=== PATIENT | female | born 1970 | race Caucasian/White ===

== ENCOUNTER 2017-03-15 14:42 | Emergency (ER) | payer OTHER ==
[~2017-03-15] VITALS: Ht 154.9 cm; Wt 79.2 kg
[2017-03-15 14:46] VITALS: TEMP 36.9; Ht 154.9 cm; Wt 79.2 kg
[2017-03-15] MEDS ORDERED: [UNRECOGNIZED DRUG - OTHER] PO (14:56)
--- NOTE | 2017-03-15 15:47 | EMERGENCY ROOM VISIT NOTE ---
History First contact with patient: 14:51 Chief Complaint: OTHER COMPLAINT Stated Complaint: SCISSOR CUT- WORK RELATED History of Present Illness The patient is a 46 year old female who presents to the Emergency Room for another location of the hospital with complaints of "scissors cut, work related ". The patient states that earlier today around 2:30 PM, she was working in the decontamination sterile processing room, when she accidentally cut her left thumb on a pair of scissors. She states that this was from case #4, and the attending on the source patient was Dr. Terry. She states that in her hand she also had bloody hemostats, and was wearing two pairs of gloves. She states that it struck her right distal thumb. She notes that her tetanus is up-to- date. At this time there is no pain. She notes that she did rinse the region out twice. Review of Systems A complete 10-point Review of Systems was discussed with the patient, with pertinent positives and negatives listed in the History of Present Illness. All remaining Review of Systems questions can be considered negative unless otherwise specified. Past Medical/Surgical History No pertinent past medical history. Family History No pertinent family history. Social History Smoking Status: Former Smoker Social History: Patient is currently employed. Current/Historical Medications Scheduled Emtricitabine/Temofovir (Truvada 200/300MG), 1 TAB PO DAILY Raltegravir Potassium (Isentress), 1 TAB PO Q12 [Activit], 1 TAB PO DAILY Allergies Coded Allergies: No Known Allergies (Unverified , 03/15/17) Physical Exam Vital Signs Date Time Temp Pulse Resp B/P Pulse Ox O2 Delivery O2 Flow Rate FiO2 03/15/17 17:38 95 18 123/80 99 03/15/17 14:46 36.9 100 20 113/79 96 Room Air Physical Exam VITAL SIGNS - Vital signs and nursing notes were reviewed. Patient is afebrile , normotensive, tachycardic rate of 100 bpm, and is saturating well on room air 96%. GENERAL -46-year-old female appearing her stated age who is in no acute distress. Communicates well with provider and answers questions appropriately. SKIN - Without rashes. There is a small, 0.5 cm superficial laceration noted at the distal most tip of the right first digit. No bleeding currently. There is full range of motion of this region. Medical Decision & Procedures Laboratory Results 03/15/17 16:20 Red Blood Count 4.58, Mean Corpuscular Volume 86.7, Mean Corpuscular Hemoglobin 28.8, Mean Corpuscular Hemoglobin Concent 33.2, Mean Platelet Volume 10.8, Neutrophils (%) (Auto) 66.5, Lymphocytes (%) (Auto) 24.6, Monocytes (%) (Auto) 7.4, Eosinophils (%) (Auto) 0.8, Basophils (%) (Auto) 0.4, Neutrophils # (Auto) 6.39, Lymphocytes # (Auto) 2.37, Monocytes # (Auto) 0.71, Eosinophils # (Auto) 0.08, Basophils # (Auto) 0.04 03/15/17 16:20 Test 03/15/17 15:20 03/15/17 16:20 Human Chorionic Gonadotropin, Qual NEG (NEG) White Blood Count 9.62 K/uL (4.8-10.8) Red Blood Count 4.58 M/uL (4.2-5.4) Hemoglobin 13.2 g/dL (12.0-16.0) Hematocrit 39.7 % (37-47) Mean Corpuscular Volume 86.7 fL (80-100) Mean Corpuscular Hemoglobin 28.8 pg (25-34) Mean Corpuscular Hemoglobin Concent 33.2 g/dl (32-36) Platelet Count 305 K/uL (130-400) Mean Platelet Volume 10.8 fL (7.4-10.4) Neutrophils (%) (Auto) 66.5 % Lymphocytes (%) (Auto) 24.6 % Monocytes (%) (Auto) 7.4 % Eosinophils (%) (Auto) 0.8 % Basophils (%) (Auto) 0.4 % Neutrophils # (Auto) 6.39 K/uL (1.4-6.5) Lymphocytes # (Auto) 2.37 K/uL (1.2-3.4) Monocytes # (Auto) 0.71 K/uL (0.11-0.59) Eosinophils # (Auto) 0.08 K/uL (0-0.5) Basophils # (Auto) 0.04 K/uL (0-0.2) RDW Standard Deviation 43.9 fL (36.4-46.3) RDW Coefficient of Variation 13.9 % (11.5-14.5) Immature Granulocyte % (Auto) 0.3 % Immature Granulocyte # (Auto) 0.03 K/uL (0.00-0.02) Anion Gap 5.0 mmol/L (3-11) Est Creatinine Clear Calc Drug Dose 80.6 ml/min Estimated GFR () 97.3 Estimated GFR (Non- 83.9 BUN/Creatinine Ratio 24.9 (10-20) Calcium Level 9.8 mg/dl (8.5-10.1) Total Bilirubin < 0.1 mg/dl (0.2-1) Aspartate Amino Transf (AST/SGOT) 12 U/L (15-37) Alanine Aminotransferase (ALT/SGPT) 24 U/L (12-78) Alkaline Phosphatase 82 U/L (45-117) Total Protein 7.3 gm/dl (6.4-8.2) Albumin 3.7 gm/dl (3.4-5.0) Globulin 3.6 gm/dl (2.5-4.0) Albumin/Globulin Ratio 1.0 (0.9-2) Medical Decision Patient was seen and evaluated as above. After obtaining a thorough history and physical examination lab collection was initiated and the employee consented to baseline testing. This was after the appropriate further work had been filled out with the patient, to include consent for HIV testing. Patient' s tetanus was up-to-date. She notes that her hepatitis B titers are also appropriate. In a decision whether or not to initiate HIV prophylaxis, the patient stated that she would choose whatever option was recommended to her. I did elect to call La Jackson, the employee health coordinator to inform her of today's findings. I then also called the postexposure prophylaxis hotline who informed me that they were on the fence whether or not to recommend HIV prophylaxis. It appears that at this time it is a very low risk of HIV transmission, however the status of the source patient is unknown. I was also informed that the source patient would not be able to consent to testing for approximately 2 weeks. I informed the patient upon this, and also about the very low risk of HIV transmission. She informed me that if we were able to test the source patient within the amount of window that was needed to start the testing, she states that she would go home and wait to be notified if the patient was HIV positive should begin prophylaxis. She indicated that because we will not know the patient's status for roughly 2 weeks, she would like to initiate HIV prophylaxis at this time. I do believe that this is reasonable. I did initiate contact with our in-house pharmacist, who also helped educate the patient upon the medications. A thorough discussion versus benefits versus risks to include potential harm and side effects was discussed with the patient. She wanted to pursue the medications. She was given the first 3 days supply here, with the remainder sent to her pharmacy. Her pharmacy was called by our pharmacy staff and it was found that her pharmacy would be able to obtain a medication within the amount of time needed. The patient had the wound cleansed after consent, and was dressed with a bacitracin dressing and bandage. She was educated to stop her vitamins during the time that she was taking medications. She takes no other medications. I was also called by the health office here, who indicated that not enough blood was drawn to be able to run baseline labs to initiate postexposure prophylaxis. I was informed only yellow top tubes have been drawn. I then decided to initiate another lab draw for CBC and CMP. These labs do not indicate any specific or emergent anemia, and at baseline her liver function and kidneys appear to be okay and there is no need to dose adjust the medication. She had all of her questions answered prior to discharge, was educated upon worrisome symptoms which to return, and was discharged home in good condition. Impression Primary Impression: Employee exposure to body fluids Departure Information Dispostion Home / Self-Care Condition GOOD Prescriptions Emtricitabine/Temofovir (Truvada 200/300MG) Tab 1 TAB PO DAILY for 25 Days, #25 TAB 0 Refills Prov: Kevin Rojas PA-C 03/15/17 Raltegravir Potassium (ISENTRESS) 400 Mg Tab 1 TAB PO Q12 for 25 Days, #50 TAB Prov: Kevin Rojas PA-C 03/15/17 Referrals Danilo Luna M.D. (PCP) Patient Instructions My [facility] Additional Instructions You were seen in the emergency Department for a body fluid exposure. You have been notified by our health department team regarding the status of your testing. After thorough discussion, you have elected to begin the HIV prophylactic exposure medication regimen. As we discussed this medication must be taken exactly as it is prescribed. The first medication, is Raltegravir (ISENTRESS), this is one tablet every 12 hours for 28 days. You have been sent home with the first 3 day supply with the remainder at her pharmacy. The second medication is Emtricitabine/Temofovir (TRUVADA) this is one tablet daily for 28 days. You've been sent home with the first 3 days supply with the remainder at your pharmacy.) Please take these medications as prescribed. You have been notified on the status of the source patient. If you have any questions please return here. Please watch for signs of infection on your finger. This includes redness, swelling, drainage. If these would develop please return here immediately. Thank you for your time.
[2017-03-15] MEDS ORDERED: HIV POST EXPOSURE PROPHYLAXIS KIT ONE (15:57)
[2017-03-15 16:35] LABS: BASO % 0.4 %; BASO ABS # 0.04 K/uL (0-0.2); COMPLETE YES; EOS % 0.8 %; HEMATOCRIT 39.7 % (37-47); IG% 0.3 %; LYMPH % 24.6 %; LYMPH ABS # 2.37 K/uL (1.2-3.4); MEAN CELL VOLUME 86.7 fL (80-100); MEAN CORPUSCULAR HEMOGLOBIN 28.8 pg (25-34); MEAN CORPUSCULAR HGB CONC 33.2 g/dl (32-36); MEAN PLATELET VOLUME 10.8 fL (7.4-10.4); MONO % 7.4 %; NEUT % 66.5 %; PLATELET COUNT 305 K/uL (130-400); RED BLOOD COUNT 4.58 M/uL (4.2-5.4); WHITE BLOOD COUNT 9.62 K/uL (4.8-10.8)
[2017-03-15 17:00] LABS: ALT/SGPT 24 U/L (12-78); AST/SGOT 12 U/L (15-37); BLOOD UREA NITROGEN 21 mg/dl (7-18); BUN/CREATININE RATIO 24.9 (10-20); CALCIUM 9.8 mg/dl (8.5-10.1); CARBON DIOXIDE 27 mmol/L (21-32); CHLORIDE 110 mmol/L (98-107); CREATININE 0.84 mg/dl (0.60-1.20); GLUCOSE 84 mg/dl (70-99); POTASSIUM 4.1 mmol/L (3.5-5.1); SODIUM 142 mmol/L (136-145)
[2017-03-15 17:02] LABS: ALKALINE PHOSPHATASE 82 U/L (45-117)
[2017-03-15 17:06] LABS: PREG INTERNAL NEGATIVE QC NEG CLEAR BACKGROUND; PREG INTERNAL POSITIVE QC POS CONTROL LINE
[2017-03-15] MEDS ORDERED: RALT400T PO (17:18)
[2017-03-15] MEDS ORDERED: TRVHP PO (17:18)
[2017-03-15] MEDS ORDERED: HIV POST EXPOSURE PROPHYLAXIS KIT PRN (17:30)
--- NOTE | 2017-03-15 17:33 | Pharmacy Progress Note ---
ED Pharmacist Counseling Note Date of Service: March 15, 2017. I spent 15 minutes with the patient explaining HIV post-exposure prophylaxis ( PEP). * I discussed the risk/benefit of HIV PEP with the patient. She elected to initiate therapy. * I provided the patient with a 3 day supply of the following medications, per provider order * Raltegravir 400 mg po BID * Truvada 200/300 mg po daily * I provided the patient with patient-specific medication information printed from [employer] * I called the patient's preferred outpatient pharmacy and confirmed they should be able to obtain the remainder of the 28 day PEP supply tomorrow * I emphasized the importance of adherence * Adverse effects including but not limited to allergic reaction/rash, nephrotoxicity, hepatotoxicity, GI upset, were reviewed * Drug interactions mentioned. The patient is on a daily multivitamin. Recommended stopping while on PEP 2nd possibility for interaction due to aluminum/magnesium content. * All of the patient's questions and concerns were address. I encouraged the patient to follow-up with any additional questions or concerns.
[2017-03-15 17:38] VITALS: BP 123/80; PULSE 95; O2SAT 99
[2017-03-18] MEDS ORDERED: EMTRICITABINE/TENOFOVIR TAB PO SCH
[2017-03-18] MEDS ORDERED: RALTEGRAVIR POTASSIUM TAB 400 MG TAB PO SCH
[2017-03-18] MEDS ORDERED: NURSING VERBAL MED ORDER ONE (19:30)
== END 2017-03-15 17:40 | disposition home or self-care (01) ==
LOC: C.EDB 14:43 → C.EDD 17:40
DX: S60.932A Unspecified superficial injury of left thumb, initial encounter (principal); W45.8XXA Other foreign body or object entering through skin, initial encounter; Y92.89 Other specified places as the place of occurrence of the external cause; Y99.0 Civilian activity done for income or pay; Z87.891 Personal history of nicotine dependence; Z79.899 Other long term (current) drug therapy